=== PATIENT | female | born 1985 | race African-American/Black ===

== ENCOUNTER 2022-02-28 18:59 | Emergency (ER) | payer SELFPAY ==
[2022-02-28] MEDS ORDERED: Albuterol 200 PUFF (6.7GM INHALER) ONE (19:56)
== END 2022-02-28 20:34 | disposition home or self-care (01) ==
LOC: ERS 18:59
DX: J45.901 Unspecified asthma with (acute) exacerbation (principal)
CPT/HCPCS: 99284